=== PATIENT | female | born 1950 | race African-American/Black ===

== ENCOUNTER 2024-08-30 14:40 | Outpatient (CLI) | payer BC | END 2024-08-30 14:41 | disposition home or self-care (01) | LOC: CSHMAMMO 14:40 | PROVIDERS: ATTEND Family Medicine | DX: Z13.820 Encounter for screening for osteoporosis (principal) | CPT/HCPCS: 77080 ==

== ENCOUNTER 2024-09-21 15:16 | Outpatient (CLI) | payer BC | END 2024-09-21 15:17 | disposition home or self-care (01) | LOC: CSHLAB 15:16 | PROVIDERS: ATTEND Obstetrics & Gynecology | DX: Z01.818 Encounter for other preprocedural examination (principal); N95.0 Postmenopausal bleeding | CPT/HCPCS: 80048; 85027; 86850; 86870; 86900; 86901; 93005; 93010 ==

== ENCOUNTER 2024-09-25 11:12 | Day surgery (SDC) | payer BC ==
[2024-09-21 15:48] VITALS: BMI 30.7
[2024-09-21 16:20] LABS: Hematocrit 34.1 % (34.9-44.5); Hemoglobin 11.1 g/dL (12.0-15.5); Mean Corpuscular HGB CONC 32.6 g/dL (32.0-36.0); Mean Corpuscular Hemoglobin 24.6 pg (27.0-33.0); Mean Corpuscular Volume 75.6 fL (81.6-98.3); Mean Platelet Volume 10.4 fL (7.4-10.4); Platelet Count 429 10x3/uL (150-450); Red Blood Cell (RBC) Count 4.51 10x6/uL (3.90-5.03); White Blood Cell (WBC) Count 5.6 10x3/uL (3.5-10.5)
[2024-09-21 16:29] LABS: Anion Gap 16 mmol/L (10-20); BUN (Urea Nitrogen) 14 mg/dL (9.8-20.1); Calc. Creatinine Clearance 0 mL/min (70-130); Carbon Dioxide 27 mmol/L (23-31); Chloride 103 mmol/L (98-107); Estimated GFR 75; Glucose 92 mg/dL (83-110); Potassium 4.1 mmol/L (3.5-5.1); Sodium 142 mmol/L (136-145)
[2024-09-25] MEDS ORDERED: Ondansetron PF 4 MG/2 ML Vial ONE ×2 (12:02→12:51)
[2024-09-25] MEDS ORDERED: Lidocaine 2% PF 5 ML VIAL ONE (12:02)
[2024-09-25] MEDS ORDERED: Dexamethasone 4 mg/ml Vial ONE ×2 (12:02→12:51)
[2024-09-25] MEDS ORDERED: Lidocaine 1% PF 5 ML VIAL ONE (12:52)
[2024-09-25] MEDS ORDERED: PROPOFOL 20 ML ONE (12:53)
[2024-09-25] MEDS ORDERED: CEFAZOLIN 2 GM VIAL ONE (12:54)
[2024-09-25] MEDS ORDERED: fentaNYL 50 mcg/mL 1 mL Vial ONE (12:54)
[2024-09-25] MEDS ORDERED: PHENYLEPHRINE-NS 100 MCG/ML 10 ML SYRINGE ONE (13:19)
== END 2024-09-25 15:05 | disposition home or self-care (01) ==
LOC: CSHSDC 11:12
PROVIDERS: ATTEND Obstetrics & Gynecology
PROC: 0UB98ZZ Excision of Uterus, Via Natural or Artificial Opening Endoscopic (ICD-10-PCS; principal; 2024-09-25)
DX: N84.0 Polyp of corpus uteri (principal); I10 Essential (primary) hypertension; E11.9 Type 2 diabetes mellitus without complications; E78.5 Hyperlipidemia, unspecified; G40.909 Epilepsy, unspecified, not intractable, without status epilepticus; Z87.59 Personal history of other complications of pregnancy, childbirth and the puerperium; Z85.3 Personal history of malignant neoplasm of breast; Z90.12 Acquired absence of left breast and nipple; Z79.84 Long term (current) use of oral hypoglycemic drugs; Z79.899 Other long term (current) drug therapy
CPT/HCPCS: 36415; 80048; 85027; 86850; 86870; 86900; 86901; 86922; 88305; J1100; J2405; J2704; J3010

== ENCOUNTER 2024-09-28 10:13 | Emergency (ER) | payer BC ==
[2024-09-28 10:46] LABS: #Basophils 0.04 10x3/uL (0.0-0.2); #Eosinophils 0.01 10x3/uL (0.0-0.5); #Monocytes 0.56 10x3/uL (0.0-1.1); #Neutrophils 5.77 10x3/uL (1.5-8.4); %Basophils 0.5 % (0.0-2.0); %Eosinophils 0.1 % (0.0-6.0); %Monocytes 7.4 % (0.0-10.0); %Neutrophils 76.7 % (40.0-75.0); Hematocrit 35.3 % (34.9-44.5); Mean Corpuscular Hemoglobin 24.9 pg (27.0-33.0); Mean Corpuscular Volume 73.2 fL (81.6-98.3); Mean Platelet Volume 9.5 fL (7.4-10.4); Platelet Count 487 10x3/uL (150-450); RBC Distribution Width 13.7 % (11.5-14.5); Red Blood Cell (RBC) Count 4.82 10x6/uL (3.90-5.03); White Blood Cell (WBC) Count 7.5 10x3/uL (3.5-10.5)
[2024-09-28 10:58] LABS: PTT 25.4 sec (22.0-33.0); Prothrombin Time 10.9 sec (9.5-12.1)
[2024-09-28 11:02] LABS: ALT (SGPT) 10 U/L (8-55); AST (SGOT) 12 U/L (5-34); Albumin 4.4 g/dL (3.4-4.8); Alkaline Phosphatase 40 U/L (40-110); Anion Gap 14 mmol/L (10-20); BUN (Urea Nitrogen) 17 mg/dL (9.8-20.1); Bilirubin, Total 0.2 mg/dL (0.2-1.2); Calc. Creatinine Clearance 0 mL/min (70-130); Calcium 10.4 mg/dL (7.8-10.44); Carbon Dioxide 26 mmol/L (23-31); Chloride 101 mmol/L (98-107); Estimated GFR 74; Globulin 3.1 g/dL (2.4-3.5); Glucose 162 mg/dL (83-110); Protein, Total 7.5 g/dL (5.8-8.1); Sodium 137 mmol/L (136-145)
[2024-09-28 11:06] LABS: Troponin I Less than 0.010 ng/mL (< 0.028)
[2024-09-28 11:24] LABS: Microcytosis SLIGHT = 6-15 cells (100X) (0-5/hpf)
[2024-09-28 11:25] LABS: Platelet Adequacy Comment Appears Increased
== END 2024-09-28 16:02 ==
LOC: CSHERS 10:13
DX: G93.9 Disorder of brain, unspecified (principal); G93.6 Cerebral edema; R29.704 NIHSS score 4; E11.9 Type 2 diabetes mellitus without complications; I10 Essential (primary) hypertension; Z79.84 Long term (current) use of oral hypoglycemic drugs; Z79.899 Other long term (current) drug therapy
CPT/HCPCS: 0042T; 36416; 70450; 71045; 80053; 84484; 85025; 85610; 85730; 93005; 94760; 96374